=== PATIENT | male | born 1955 | race Caucasian/White ===

== ENCOUNTER 2017-10-16 20:41 | Emergency (ER) | payer MEDICARE, MEDICAID ==
[~2017-10-16] VITALS: Ht 182.9 cm; Wt 75.0 kg
[~2017-10-16 20:41] MED LIST: AMITRIPTYLINE; AMITRIPTYLINE H50 M1 PO; CEPHALEXIN500 M1 PO; NORCO 325 MG-7.1 TAB PO; WELLBUTRIN PO
[2017-10-16 21:07] VITALS: BP 139/79; PULSE 99; TEMP 98.3
[2017-10-16] MEDS ORDERED: WELLBUTRIN XL300 M1 PO (21:09)
[2017-10-16] MEDS ORDERED: BACTRIM DS 8001 TAB PO (21:48)
== END 2017-10-16 21:54 | disposition home or self-care (01) ==
LOC: COL.ER 20:41
DX: L02.212 Cutaneous abscess of back [any part, except buttock and flank] (principal); F32.9 Major depressive disorder, single episode, unspecified; F17.210 Nicotine dependence, cigarettes, uncomplicated

== ENCOUNTER → 2020-04-06 | Outpatient (CLI) | payer MEDICARE, MEDICAID ==
[~2020-04-06] MED LIST changes: +BACTRIM DS 8001 TAB PO; +WELLBUTRIN XL300 M1 PO
== END | disposition still patient (30) ==
LOC: COL.RAD 08:00
DX: Z13.6 Encounter for screening for cardiovascular disorders (principal); F17.201 Nicotine dependence, unspecified, in remission

== ENCOUNTER 2023-11-08 21:17 | Emergency (ER) | payer MEDICARE, MEDICAID ==
[~2023-11-08] VITALS: Ht 185.4 cm; Wt 75.0 kg
[2023-11-08 21:40] VITALS: TEMP 98.7
[2023-11-08 23:11] VITALS: BP 136/94; PULSE 85
== END 2023-11-08 23:11 | disposition home or self-care (01) ==
LOC: COL.ER 21:17
DX: S09.90XA Unspecified injury of head, initial encounter (principal); S00.03XA Contusion of scalp, initial encounter; S50.311A Abrasion of right elbow, initial encounter; W01.198A Fall on same level from slipping, tripping and stumbling with subsequent striking against other object, initial encounter; Y92.480 Sidewalk as the place of occurrence of the external cause